=== PATIENT | female | born 1970 | race Caucasian/White ===

== ENCOUNTER 2018-01-05 11:46 | Emergency (ER) | payer BC ==
[~2018-01-05] VITALS: Ht 165.1 cm; Wt 104.3 kg
[~2018-01-05 11:46] MED LIST: HYDROCHLOROTH12.5 MG PO
[2018-01-05] MEDS ORDERED: ATIVAN0.5 MG PO (11:57)
[2018-01-05] MEDS ORDERED: ANTIVERT25 MG PO (11:57)
[2018-01-05] MEDS ORDERED: CARDIZEM CD240 MG PO (11:58)
[2018-01-05] MEDS ORDERED: SPIRONOLACTONE25 M1 PO (11:58)
[2018-01-05 12:20] LABS: ABSOLUTE BASOPHILS 0.1 thou/uL (0.0-0.2); ABSOLUTE EOSINOPHILS 0.2 thou/uL (0.0-0.7); ABSOLUTE LYMPHOCYTES 1.6 thou/uL (0.8-5.3); ABSOLUTE MONOCYTES 0.5 thou/uL (0.0-1.2); ABSOLUTE NEUTROPHILS 5.4 thou/uL (1.6-8.1); BASOPHILS 1.1 %; EOSINOPHILS 2.9 %; HEMATOCRIT 41.9 % (37.0-47.0); LYMPHOCYTES 20.4 %; MCH 28.7 pg (26.0-34.0); MCHC 33.3 g/dL (28.0-37.0); MCV 86.3 fL (80.0-100.0); MONOCYTES 6.2 %; MPV 7.6 fl. (7.2-11.1); NUCLEATED RBCS 0 /100WBC; PLATELET COUNT* 402 thou/uL (150-400); POLYS 69.4 %; RBC 4.85 mil/uL (4.20-5.00); RDW-CV 14.5 % (10.5-14.5); WBC 7.8 thou/uL (4.0-11.0)
[2018-01-05 12:31] LABS: ANION GAP 11 mmol/L (7-16); APTT 28.3 Seconds (25.0-31.3); BUN 11 mg/dL (7-18); CALCIUM 9.3 mg/dL (8.5-10.1); CHLORIDE 102 mmol/L (98-107); CO2 23 mmol/L (21-32); CREATININE 0.8 mg/dL (0.6-1.3); GLUCOSE 135 mg/dL (70-99); POTASSIUM 3.6 mmol/L (3.5-5.1); PROTIME 10.3 Seconds (9.20-11.50); SODIUM 136 mmol/L (136-145)
[2018-01-05 12:50] LABS: ALBUMIN 3.7 g/dL (3.4-5.0); ALKALINE PHOSPHATASE 71 U/L (46-116); CK-MB MASS < 0.5 ng/mL (<0.5-3.6); LIPASE 121 U/L (73-393); MAGNESIUM 1.8 mg/dL (1.8-2.4); NT-PRO BRAIN NAT PEPTIDE 75 pg/mL (<300); SGOT 11 U/L (15-37); SGPT 23 U/L (30-65); TOTAL BILIRUBIN 0.6 mg/dL (<0.1-1.0); TOTAL PROTEIN 7.7 g/dL (6.4-8.2); TROPONIN-I LEVEL <0.06 ng/mL (<0.06)
[2018-01-05 13:09] VITALS: BP 132/77
--- NOTE | 2018-01-05 16:33 | EKG ---
[place] [address] ELECTROCARDIOGRAM REPORT Name: DIANN GERARDO Room: [facility]#: [id number] Admission: 01/05/18 Attend Phys: Discharge: 01/05/18 Date of : 70 Report #: [id number] THIS REPORT FOR: //name// [facility] ED Test Date: 2018-01-05 Test Time: 11:52:19 Pat Name: DIANN GERARDO Department: Room: Gender: F Auto Mechanic: Rebecca WATERS : 1970 Requested By: Miguel Vargas Order Number: [id number] MD: Rudy Moody Measurements Intervals [place] Rate: 62 P: 15 ND: 146 QRS: 8 QRSD: 88 T: 32 QT: 416 QTc: 423 Interpretive Statements Sinus rhythm Probable left atrial enlargement No previous ECG available for comparison Electronically Signed On 01-05-2018 16:33:00 CDT by Rudy Moody [email or web address] <ELECTRONICALLY SIGNED> By: Rudy Moody MD, [facility] 01/05/18 1633 1152 1152 Rudy Moody MD, FACC /EPI
== END 2018-01-05 13:14 | disposition home or self-care (01) ==
LOC: M.ERS 11:46
PROVIDERS: Family Medicine
DX: F41.0 Panic disorder [episodic paroxysmal anxiety] (principal); I10 Essential (primary) hypertension; I48.91 Unspecified atrial fibrillation; Z91.030 Bee allergy status

== ENCOUNTER → 2018-04-16 | Outpatient (CLI) | payer BC ==
[~2018-04-16] MED LIST changes: +ANTIVERT25 MG PO; +ATIVAN0.5 MG PO; +CARDIZEM CD240 MG PO; +SPIRONOLACTONE25 M1 PO
== END ==
LOC: M.RAD 09:53
DX: Z12.31 Encounter for screening mammogram for malignant neoplasm of breast (principal)

== ENCOUNTER → 2019-05-10 | Outpatient (CLI) | payer BC | LOC: M.RAD 10:00 | DX: Z12.31 Encounter for screening mammogram for malignant neoplasm of breast (principal) ==